=== PATIENT | male | born 1990 ===

== ENCOUNTER 2023-07-02 13:47 | Outpatient (CLI) | payer OTHER, SELFPAY ==
--- NOTE | ~2023-07-02 | US_ITS ---
EXAMINATION: US soft tissue head and neck DATE: 07/02/2023 14:11 INDICATION: Nonspecific lymphadenitis, unspecified. TECHNIQUE: Multiple grayscale and Doppler ultrasound images of the head and neck were obtained. COMPARISON: None FINDINGS: There is no abnormal mass or lymphadenopathy in the patient's area of concern in left subma ndibular region. IMPRESSION: 1. No abnormal mass or lymphadenopathy in the patient's area of concern in left submandibular region. Reviewed, dictated and finalized at location A.
== END 2023-07-02 13:48 ==
LOC: MICIMG 13:49
PROVIDERS: PCP Nurse Practitioner; Visit Provider Nurse Practitioner
DX: I88.9 Nonspecific lymphadenitis, unspecified (principal)
CPT/HCPCS: 76536